=== PATIENT | male | born 1955 | race Caucasian/White ===

== ENCOUNTER → 2016-12-19 | Outpatient (CLI) | payer BC | END | disposition short-term general hospital (02) | LOC: CLRHEU 09:58 | DX: M19.90 Unspecified osteoarthritis, unspecified site (principal) ==

== ENCOUNTER → 2017-06-10 | Outpatient (CLI) | payer BC | END | disposition short-term general hospital (02) | LOC: CLNEUR 00:46 | DX: M79.2 Neuralgia and neuritis, unspecified (principal) ==